=== PATIENT | female | born 1995 | race Caucasian/White ===

== ENCOUNTER 2019-06-30 18:22 | Emergency (ER) | payer OTHER ==
[~2019-06-30] VITALS: Ht 160 cm; Wt 61.1 kg
[~2019-06-30 18:22] MED LIST: NONE PER PT
[2019-06-30 18:56] LABS: MICROSCOPIC NOT IND
[2019-06-30 19:04] LABS: CULTURE INDICATED? NO
[2019-06-30 19:05] LABS: BASOPHILS # (AUTO) 0.05 x10^3/uL (0-0.1); BASOPHILS % (AUTO) 1 % (0-1); EOSINOPHILS # (AUTO) 0.16 x10^3/uL (0-0.4); EOSINOPHILS % (AUTO) 2 % (1-7); LYMPHOCYTES # (AUTO) 2.46 x10^3/uL (1-3.4); LYMPHOCYTES % (AUTO) 35 % (22-44); MD NO; MEAN CORPUSCULAR HGB CONC 33.5 g/dL (32.4-35.8); MEAN CORPUSCULAR VOLUME 92.5 fL (80-100); MEAN PLATELET VOLUME 8.2 fL (7.4-10.4); MONOCYTES # (AUTO) 0.67 x10^3/uL (0.2-0.8); MONOCYTES % (AUTO) 10 % (2-9); NEUTROPHILS # (AUTO) 3.71 x10^3/uL (1.8-6.8); NEUTROPHILS % (AUTO) 53 % (42-75); PLATELET COUNT 245 x10^3/uL (130-400); RED BLOOD COUNT 4.46 x10^6/uL (3.82-5.3); RED CELL DISTRIBUTION WIDTH 13.3 % (9.6-15.2)
[2019-06-30 19:07] LABS: AMPHETAMINE SCREEN, URINE Negative (Negative); BARBITURATE SCREEN, URINE Negative (Negative); BENZODIAZEPINE SCREEN, URINE Negative (Negative); CANNABINOID SCREEN, URINE Negative (Negative); COCAINE SCREEN, URINE Negative (Negative); METHADONE SCREEN, URINE Negative (Negative); OPIATE SCREEN, URINE Negative (Negative)
[2019-06-30 19:16] LABS: ALANINE AMINOTRANSFERASE 17 U/L (12-78); ALBUMIN 3.7 g/dL (3.4-5.0); ANION GAP 5 mmol/L (5-15); CALCIUM 8.9 mg/dL (8.5-10.1); CHLORIDE 108 mmol/L (98-107); CREATININE 0.85 mg/dL (0.55-1.02)
[2019-06-30 19:23] LABS: ALKALINE PHOSPHATASE 75 U/L (45-117); BILIRUBIN,TOTAL 0.2 mg/dL (0.2-1.0); TOTAL PROTEIN 7.2 g/dL (6.4-8.2)
--- NOTE | 2019-06-30 19:53 | NUR ---
"I HAVE BEEN PARTYING ON NEW YEARS AND EVERY SINCE THEN I FEEL DIZZY AND FUZZY AND MY VISION IS BLURRED." SENT FROM URGENT CARE. PT C/O LRQ PAIN. COCAINE AND ETOH ON 06/25/2019, PER MOM UP FOR 18 HOURS (CONSTANT FOR 18 HOURS) RECENT BREAK UP AND INCREASE IN STRESS per triage note
[2019-06-30 20:01] VITALS: BP 119/84
--- NOTE | 2019-06-30 20:21 | NUR ---
all labs are wdl erp is aware no further order was received pt is resting no other c/o family at bed side
== END 2019-06-30 21:06 | disposition home or self-care (01) ==
LOC: ED 20:55
DX: R42 Dizziness and giddiness (principal); R20.9 Unspecified disturbances of skin sensation; R11.0 Nausea
CPT/HCPCS: 36415; 80053; 80307; 81003; 84703; 85025; 93005; 99284